=== PATIENT | female | born 1985 | race Caucasian/White ===

== ENCOUNTER 2022-10-07 17:01 | Inpatient (IN) | payer OTHER ==
[~2022-10-07] VITALS: Ht 152.4 cm; Wt 52.6 kg
--- NOTE | 2022-10-07 17:05 | NUR ---
PT BIBA TO BED 8
--- NOTE | 2022-10-07 17:10 | NUR ---
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 PT REPORTS MISSING DIALYSIS TODAY D/T SOB. PER EMS, PT WAS SATTING MID 80 UPON EMS ARRIVAL. PT WAS PLACED ON NRB SATTING 100%. PT NOW PLACED ON ROOM AIR SATTING 97%. PT DENIES COUGH, AFEBRILE. PMH: RENAL FAILURE, DIALYSIS (MWF), HTN
[2022-10-07 17:14] VITALS: BP 153/103
[2022-10-07] MEDS ORDERED: levoFLOXacin 500 MG TAB PO ONE (17:30)
--- NOTE | 2022-10-07 17:52 | NUR ---
lab at bedside
--- NOTE | 2022-10-07 17:52 | NUR ---
pt swabbed for covid(marina) handed to lab
--- NOTE | 2022-10-07 18:13 | NUR ---
xray at bedside
--- NOTE | 2022-10-07 18:14 | NUR ---
MD ZUNIGA AT BEDSIDE FOR EVALUATION
[2022-10-07 18:35] LABS: ALBUMIN 3.4 g/dL (3.4-5.0); ANION GAP 24.6 (8-16); CARBON DIOXIDE 18.9 mmol/L (21-32); POTASSIUM 3.5 mmol/L (3.5-5.1); TOTAL BILIRUBIN 0.7 mg/dL (0.0-1.0)
[2022-10-07 18:50] LABS: CREATININE 14.6 mg/dL (0.6-1.3)
[2022-10-07] MEDS ORDERED: NACL 0.9% 1,000 ML IV ONE (19:10)
--- NOTE | 2022-10-07 19:20 | NUR ---
REPORT GIVEN TO HUBERT MCKEON. TRANSFER OF CARE AT THIS TIME
[2022-10-07 19:21] LABS: WHITE BLOOD COUNT (AUTO) 20.6 K/uL (4.8-10.8)
[2022-10-07 19:22] LABS: HEMOGLOBIN 13.4 g/dL (12.0-16.0); MEAN CORPUSCULAR HEMOGLOBIN 31 pg (27-31); MEAN CORPUSCULAR HGB CONC 34 g/dL (33-37); MEAN CORPUSCULAR VOLUME 91.9 fL (80-94); PLATELET COUNT (AUTO) 43 K/uL (140-450); RED BLOOD CELL COUNT(AUTO) 4.35 MIL/uL (4.20-5.40); RED CELL DISTRIBUTION WIDTH 15.6 % (11.6-13.7)
[2022-10-07 19:23] LABS: LYMPHOCYTES % (MANUAL) 2 % (20-46)
[2022-10-07] MEDS ORDERED: CEFEPIME 1,000 MG in DEXTROSE 5% 50 ML IV ONE (19:25)
[2022-10-07] MEDS ORDERED: VANCOMYCIN 1,000 MG in DEXTROSE 5% 250 ML IV ONE (19:25)
[2022-10-07] MEDS ORDERED: VANCOMYCIN PER PHARMACY MC PRN (19:50)
[2022-10-07] MEDS ORDERED: ONDANSETRON 4 MG/2 ML VIAL IVP PRN (19:50)
[2022-10-07] MEDS ORDERED: HYDROcodone/APAP 5/325 MG 1 TAB TAB PO PRN (19:50)
[2022-10-07] MEDS ORDERED: ZOLPIDEM 5 MG TAB PO PRN (19:50)
[2022-10-07] MEDS ORDERED: CEFEPIME 1,000 MG VIAL ONE (20:11)
[2022-10-07] MEDS: ACETAMINOPHEN 325 MG TAB PO PRN (20:32)
--- NOTE | 2022-10-07 20:32 | NUR ---
PT IS AWAKE WITH HOB ELEVATED. 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 PT DENIES CP . IS SOB SP02 98% 2L NC. PT IS A&OX4 DANISH SPEAKING ONLY. PENDING ADMISSION ORDERS PT IS AWARE OF ADMISSION. PT STATES FEELING ILL FOR 2 DAYS. IS COVID POS. PT HAS BEEN HAVING DIARRHEA THAT STARTED TODAY. FEVER OF 100.8 ORAL. MEDS GIVEN FOR FEVER. PCN HTN ERSD
[2022-10-07] MEDS ORDERED: VANCOMYCIN 1,000 MG VIAL ONE (20:55)
[2022-10-07] MEDS ORDERED: CLON0.1T15 PO (21:21)
[2022-10-07] MEDS ORDERED: OSC500 PO (21:22)
--- NOTE | 2022-10-07 21:22 | NUR ---
MED RECONCILE COMPLETED
--- NOTE | 2022-10-07 23:00 | NUR ---
PT IS SLEEPING WITH HOB ELEVATED. ON WORKERS COMPENSATION COORDINATOR. PT IS A TELE HOLD. PENDING BED ASSIG
--- NOTE | 2022-10-08 03:34 | NUR ---
RESP EVEN AND UNLBORED. SP02 98% 2L NC. HOB ELEVATED. PT DENIES PAIN. PENDING BED ASSIG FOR AM
--- NOTE | 2022-10-08 05:50 | NUR ---
Spoke with Dr. Hay regarding patient having episodes of diarrhea, and clarified orders for heparin received orders to discontinue heparin order due to low platelet count and r/o cdiff. Noted and carried out.
--- NOTE | 2022-10-08 07:14 | NUR ---
C-DIFF STOOL SAMPLE COLLECTED AND SENT TO LAB
[2022-10-08 07:17] LABS: ALBUMIN 2.9 g/dL (3.4-5.0); ANION GAP 25.1 (8-16); CARBON DIOXIDE 16.5 mmol/L (21-32); POTASSIUM 3.6 mmol/L (3.5-5.1); TOTAL BILIRUBIN 0.7 mg/dL (0.0-1.0)
[2022-10-08 07:19] LABS: CREATININE 15.7 mg/dL (0.6-1.3)
[2022-10-08 07:26] LABS: BASOPHILS % (AUTO) 0.2 % (0.0-2.0); HEMATOCRIT 38.6 % (36-48); HEMOGLOBIN 12.9 g/dL (12.0-16.0); LYMPHOCYTES # (AUTO) 0.8 K/uL (2.5-16.5); MEAN CORPUSCULAR HEMOGLOBIN 31 pg (27-31); MEAN CORPUSCULAR HGB CONC 33 g/dL (33-37); MEAN CORPUSCULAR VOLUME 92.8 fL (80-94); MONOCYTES # (AUTO) 0.6 K/uL (0.8-1.0); MONOCYTES % (AUTO) 3.8 % (1.7-9.3); NEUTROPHILS # (AUTO) 14.8 K/uL (1.8-7.7); PLATELET COUNT (AUTO) 42 K/uL (140-450); RED BLOOD CELL COUNT(AUTO) 4.16 MIL/uL (4.20-5.40); WHITE BLOOD COUNT (AUTO) 16.2 K/uL (4.8-10.8)
[2022-10-08] MEDS ORDERED: CALCIUM GLUCONATE 10% 1,000 MG in NACL 0.9% 50 ML IV SCH (07:39)
[2022-10-08] MEDS ORDERED: CALCIUM GLUC 1 GM/50 mL NS BAG 50 ML IV ONE (07:56)
[2022-10-08] MEDS: DOCUSATE SODIUM 100 MG GELCAP PO SCH (09:00)
[2022-10-08] MEDS ORDERED: CEFEPIME 1,000 MG in DEXTROSE 5% 50 ML IV SCH (09:00)
--- NOTE | 2022-10-08 09:05 | NUR ---
PATIENT HAS BEEN SCREENED AND CATEGORIZED MODERATE NUTRITION RISK. PATIENT WILL BE SEEN WITHIN 3-5 DAYS OF ADMISSION. 10/07/22-10/12/22 REVIEWED BY [address] M[address] RD Addendum: 10/10/22 at [address] [facility] REFERRAL HAS BEEN RECEIVED FOR NAUSEA/VOMITING/DIARRHEA X 3 DAYS. PATIENT HAS BEEN RE-SCREENED HIGH RISK AND WILL BE SEEN WITHIN 1-2 DAYS OF RECEIVING THE [facility] REFERRAL. PAOLA SOTELO RD
--- NOTE | 2022-10-08 09:19 | NUR ---
paged Dr Garcia for PT heartrate 120-130. no orders received. comfimed trasfer to telemetry
--- NOTE | 2022-10-08 09:45 | NUR ---
PT ADMITTED IN STABLE CONDITION. ON 2L NC, CHEST RISING AND FALLING EVEN AND UNLABORED. NO ACUTE S/S OF DISTRESS. VSS. ASSESSMENT COMPLETED. MRSA SWAB COLLECTED AND PLACED IN LAB BIN. EDUCATION PROVIDED REGARDING PLAN OF CARE. ON COVID PRECAUTION. PENDING CDIFF. IV PATENT AND INTACT. ALL SAFETY MEASURES IN PLACE. CALL LIGHT WITHIN REACH.
--- NOTE | 2022-10-08 09:50 | NUR ---
Patient will be admitted to care of Dr Garcia. Admited to telemetry. Will go to room 116. Belongings list completed. Report to LESLIE De La Cruz.
[2022-10-08] MEDS: DEXAMETHASONE 4 MG/ML VIAL IVP SCH (09:53)
[2022-10-08 10:31] VITALS: BP 145/65
[2022-10-08 12:00] VITALS: BP 145/65
[2022-10-08] MEDS ORDERED: remdesivir COMMUNICATION ORDER 1 EA MISC MC PRN (12:15)
[2022-10-08] MEDS ORDERED: remdesivir CLINICAL MONITORING 1 EA MISC MC PRN (12:35)
[2022-10-08] MEDS: ASCORBIC ACID 500 MG TAB PO SCH (13:30)
[2022-10-08] MEDS: VITAMIN D 400 IU TAB PO SCH (13:30)
[2022-10-08] MEDS: ZINC SULF 220 MG CAP PO SCH (13:31)
[2022-10-08] MEDS: FAMOTIDINE 20 MG/2 ML VIAL IV SCH (13:34)
[2022-10-08] MEDS ORDERED: REMDESIVIR. 100 MG in NACL 0.9% 100 ML IV SCH (14:00)
--- NOTE | 2022-10-08 15:00 | NUR ---
OBTAINED SIGNED CONSENT FROM PATIENT AND DR FOR HEMODIALYSIS. PROVIDED TO DIALYSIS NURSE WELL.
[2022-10-08 16:00] VITALS: BP 145/65
--- NOTE | 2022-10-08 19:30 | NUR ---
RECEIVED REPORT FROM DAY SHIFT ORIENTATING NURSE JOSE (BEING ORIENTATED BY LESLIE OKEEFE) FOR CONTINUITY OF CARE. PATIENT IS A&O X4. PATIENT IS ON NC 2L, BREATHING IS NORMAL WITH SYMMETRICAL RISE AND FALL OF CHEST. IV IS A 22G LFA, RUNNING NS TKO 5ML. PATIENT IS RECEIVING HD. BED IS IN LOWEST POSITION, WHEELS LOCKED, CALL LIGHT IN PLACE. WILL CONTINUE TO OBSERVE PATIENT.
[2022-10-08 20:00] VITALS: BP 154/109
[2022-10-08] MEDS ORDERED: VANCOMYCIN PER PHARMACY MC PRN (23:10)
[2022-10-09] VITALS: BP 135/102
--- NOTE | 2022-10-09 | NUR ---
PATIENT FINISHED HD AT 2256; 1.8L OUT PER DIALYSIS NURSE ALISSON. DURING DIALYSIS, PATIENT'S ST BECAME SLIGHTLY ELEVATED. NOTIFIED SPINNING LATHE OPERATOR AUTOMATIC PHYSICIAN ESTHER ABOUT DOING A 12 LEAD EKG. AUTHORIZED 12 LEAD. SENT RESULTS TO DR. SANTANA; SAID EKG DIDN'T LOOK TO BAD AND TO CONTINUE MONITORING PATIENT.
[2022-10-09 04:00] VITALS: BP 128/88
--- NOTE | 2022-10-09 05:00 | NUR ---
PATIENT HAD 3 BOWEL MOVEMENTS THROUGH THE NIGHT. BM WAS SLIGHTLY FORMED AND LIQUID, GREEN IN COLOR. WAS INFORMED BY DAY SHIFT NURSE THAT C-DIFF WAS COLLECTED. WILL CONTINUE TO OBSERVE PATIENT.
[2022-10-09 06:53] LABS: BASOPHILS % (AUTO) 0.3 % (0.0-2.0); EOSINOPHILS # (AUTO) 0.1 K/uL (0-0.4); EOSINOPHILS % (AUTO) 0.5 % (0.0-4.0); HEMATOCRIT 41.5 % (36-48); HEMOGLOBIN 13.8 g/dL (12.0-16.0); LYMPHOCYTES # (AUTO) 0.5 K/uL (2.5-16.5); LYMPHOCYTES % (AUTO) 4.4 % (20.5-51.1); MEAN CORPUSCULAR HEMOGLOBIN 30 pg (27-31); MEAN CORPUSCULAR HGB CONC 33 g/dL (33-37); MEAN CORPUSCULAR VOLUME 91.4 fL (80-94); MONOCYTES # (AUTO) 0.7 K/uL (0.8-1.0); MONOCYTES % (AUTO) 5.6 % (1.7-9.3); NEUTROPHILS # (AUTO) 10.9 K/uL (1.8-7.7); NEUTROPHILS % (AUTO) 89.2 % (42.2-75.2); PLATELET COUNT (AUTO) 35 K/uL (140-450); RED BLOOD CELL COUNT(AUTO) 4.54 MIL/uL (4.20-5.40); RED CELL DISTRIBUTION WIDTH 16.2 % (11.6-13.7); WHITE BLOOD COUNT (AUTO) 12.2 K/uL (4.8-10.8)
[2022-10-09 06:58] LABS: PHOSPHORUS 4.1 mg/dL (2.5-4.9)
[2022-10-09 07:05] LABS: ANION GAP 27.6 (8-16); CARBON DIOXIDE 17.1 mmol/L (21-32); POTASSIUM 3.7 mmol/L (3.5-5.1); TOTAL BILIRUBIN 0.7 mg/dL (0.0-1.0)
--- NOTE | 2022-10-09 07:08 | NUR ---
ENDORSED PATIENT TO DAY SHIFT NURSE SARY FOR CONTINUITY OF CARE. PATIENT IS STABLE.
--- NOTE | 2022-10-09 07:30 | NUR ---
RECEIVED REPORT FROM ASSISTED LIVING EXECUTIVE DIRECTOR NURSE. PT CURRENTLY RESTING WITH CHEST RISING AND FALLING. PT RECEIVING 2L NASAL CANNULA OXYGEN. NO ACUTE S/S OF DISTRESS, ALL SAFETY MEASURES IN PLACE. CALL LIGHT WITHIN REACH.
--- NOTE | 2022-10-09 07:30 | NUR ---
RECEIVED REPORT FROM BILL OF MATERIALS CLERK NURSE FOR CONTINUITY OF CARE, PT IS LAYING IN BED ON COVID PRECAUTIONS ON 2L NC STATING SHE IS FINE AND DOES NOT NEED ANYTHING. CALL LIGHT WITHIN REACH. BILL OF MATERIALS CLERK ENDORSED PT BECOMING ST DURING DIALYSIS, NOTIFIED, 12 LEAD EKG WAS ORDERED. SENT RESULTS, AND STATED NO INTERVENTIONS NEEDED TO CONTINUE TO MONITOR. PT CURRENTLY ON TELEMONITOR SHOWING ST AT 113. ALL SAFETY MEASURES IN PLACE.
[2022-10-09 08:00] VITALS: BP 127/87
--- NOTE | 2022-10-09 08:02 | NUR ---
CRITICAL FROM LAB RECEIVED, MD NOTIFIED WELL JR. SYSTEMS ADMINISTRATOR. JR. SYSTEMS ADMINISTRATOR GAVE NO NEW ORDERS. STATED HE WILL PLACE ORDERS.
[2022-10-09] MEDS: CEFEPIME 500 MG in DEXTROSE 5% 50 ML IV SCH (08:29)
[2022-10-09] MEDS: ZINC SULF 220 MG CAP PO SCH (08:30)
[2022-10-09] MEDS: ASCORBIC ACID 500 MG TAB PO SCH (08:30)
[2022-10-09] MEDS: ACETAMINOPHEN 325 MG TAB PO PRN (08:30)
[2022-10-09] MEDS: DOCUSATE SODIUM 100 MG GELCAP PO SCH (08:30)
[2022-10-09] MEDS: VITAMIN D 400 IU TAB PO SCH (08:30)
[2022-10-09] MEDS: DEXAMETHASONE 4 MG/ML VIAL IVP SCH (08:31)
[2022-10-09] MEDS ORDERED: ONDANSETRON 4 MG/2 ML VIAL IVP PRN (09:00)
[2022-10-09] MEDS: LORazepam 2 MG/ML VIAL IVP PRN (09:05)
--- NOTE | 2022-10-09 09:05 | NUR ---
MD NOTIFIED OF PT STATING SHE HAS 8/10 PRESSURE IN CHEST AND FEELS ANXIOUS. MD NOTIFIED REGARDING THIS, WELL VITAL SIGNS. MD ORDERED TORB, GIVEN PER MD ORDER. ALL KARLI MEDICATION ADMINISTERED PER MD ORDER. ALL SAFETY MEASURES IN PLACE, CALL LIGHT WITHIN REACH.
[2022-10-09 12:00] VITALS: BP 126/81
[2022-10-09] MEDS ORDERED: VANCOMYCIN 500 MG VIAL PO SCH (12:00)
[2022-10-09] MEDS: FAMOTIDINE 20 MG/2 ML VIAL IV SCH (13:28)
[2022-10-09] MEDS: VANCOMYCIN HCL 25 MG/ML SOLN PO SCH ×3 (13:29→23:31)
[2022-10-09] MEDS: REMDESIVIR. 100 MG in NACL 0.9% 100 ML IV SCH (13:31)
--- NOTE | 2022-10-09 14:11 | NUR ---
PROVIDED PATIENT CARE AND MEDICATIONS. IV SITE WAS CHANGED TO LEFT FOREARM. PATIENT CONFIRMS NO CHEST PAIN, NO NAUSEA. AND NO DIARRHEA AT THIS TIME.
--- NOTE | 2022-10-09 14:37 | NUR ---
I COMMUNICATED WITH DIALYSIS NURSE AND SHE CONFIRMED THAT PATIENT IS SCHEDULED FOR DIALYSIS TOMORROW 10/30/22. WE MESSAGED DR LOZANO WELL TO NOTIFY REGARDING PATIENTS JUNCTIONAL TACHYCARDIA AND DIALYSIS FOR TOMORROW. PENDING HIS RESPONSE.
[2022-10-09 16:00] VITALS: BP 134/96
--- NOTE | 2022-10-09 16:53 | NUR ---
DC PLANN[age] YRS OLD FEMALE PATIENT WAS ADMITTED FROM HOME WITH A DX OF ESRD COVID . PATIENT HAS A HX OF ESRD ON DIALYSIS ,HTN, HLD. CXR SHOWED CARDIOMEGALY AND BILATERAL UPPER LOBE REFLECTING INFILTRATES. RAPID CVOID TEST POSITIVE. ON O22L/NC SATING 98%. ADMINISTERED REMDESIVIR IV, IV ABX CEFEPIME AND VANCOMYCIN PO FOR C-DIFF POSITIVE . CONSULTED WITH ID, PULMO AND NEPHRO. DC PLAN TO HOME WHEN STABLE CM TO FOLLOW Addendum: 10/11/22 at 1128 by Olivia Vega RN DC PLANNING: [facility] TUNNEL DIALYSIS ACCESS REMOVED FOR BLOOD CULTURES REVEAL GM+COCCI/ [facility] AURE[facility]. WILL PLAN FOR NON TUNNELED HD PLACEMENT TOMORROW. CONTINUED VANCOMYCIN AND CEFEPIME IV ABX AND REMDESIVIR FOR COVID. ID AND NEPHRO FOLLOWING. DC PLAN TO GO HOME WHEN STABLE. CM TO FOLLOW. Addendum: 10/14/22 at 1608 by Olivia Vega RN DC PLANNING: DR CONTRERAS ATTEMPTED TO PERFORM HEMODIALYSIS CATHETER ACCESS UNSUCCESSFUL RECOMMENDED THE IR TO INSERT TUNNEL CATH. SEEN BY CARDIO ORDERED FRANCIS TO R/O ENDOCARDITIS. SEEN BY NEPHRO TO CONTINUE HD. CONTINUED IV ABX ROCEPHIN AND VANCOMYCIN. DC PLAN AWAITING FOR FRANCIS. CM TO FOLLOW Addendum: 10/16/22 at 1524 by Olivia Vega RN DC PLANNING: FRANCIS RESULT SHOWED ENDOCARDITIS ,C-DIFF DR MILLS FOLLOWING ORDERED TO CONTINUE ORAL VANCO CEFTRIAXONE AND DECADRON FOR COVID. CARDIO AND NEPHRO FOLLOWING. CM TO FOLLOW Addendum: 10/17/22 at 1218 by Olivia Vega RN DC PLANNING: CM DISCUSSED WITH DR GEE REGARDING DC PLAN TO LT[facility] PER MD HARDY FOR LTACT CM SPOKE WITH HIEN PADRONA AND KATTY AGREED AND PROVIDE THE TRANSPORT AUTH # [id number] FAXED TO [facility]. CM TO FOLLOW Addendum: 10/21/22 at 1643 by Olivia Vega RN DC PLANNING: CM DISCUSSED THE DC PLAN TO LTAC WITH DR HENRIQUEZ. PER DR HENRIQUEZ SPOKE WITH DR MILLS AND AGREED FOR [facility] FOR IV ROCEPHIN FOR 6 WEEKS. CM CONTACTED [facility] AND STILL AWAITING FOR BED CM CONTACTED PATIENT AND PT AGRE[facility] WITH [facility]. CM TO FOLLOW. Addendum: 10/21/22 at 1704 by Olivia Vega RN DC PLANNING: TON SPOKE WITH [facility] AT [facility], STATED AWAITING FOR BED NUMBER. ARRANGED TRANSPORT WILL CALL WITH [facility] [phone] CM TO FOLLOW Addendum: 10/22/22 at 1406 by Olivia Vega RN DC PLANNING: RECEIVED A CALL FROM [facility] AT [facility] STATED PT GOT ACCEPTED AT [facility] TO ROOM 304B UNDER THE CARE OF DR ESE FERGUSON. # TO GIVE REPORT [phone] ARRANGED TRANSPORT WITH [facility] [employer] WORKER TIME 6PM NOTIFIED BRIGIDA CHARGE NURSE AND ZAID APPLE CM TO FOLLOW
--- NOTE | 2022-10-09 18:27 | NUR ---
PT IS SLEEPING WITH CHEST RISING AND FALLING. PT ON 2L NASAL CANNULA. NO ACUTE S/S OF DISTRESS. ON TRIAGE CLINICIAN SHOWING 114 SINUS TACHYCARDIA.
[2022-10-09 20:00] VITALS: BP 130/80
[2022-10-10] VITALS: BP 128/78
[2022-10-10 04:00] VITALS: BP 125/75
[2022-10-10] MEDS: VANCOMYCIN HCL 25 MG/ML SOLN PO SCH ×4 (05:25→23:54)
[2022-10-10 06:50] LABS: BASOPHILS % (AUTO) 0.2 % (0.0-2.0); HEMOGLOBIN 12.9 g/dL (12.0-16.0); LYMPHOCYTES # (AUTO) 0.5 K/uL (2.5-16.5); MEAN CORPUSCULAR HEMOGLOBIN 31 pg (27-31); MEAN CORPUSCULAR HGB CONC 34 g/dL (33-37); MEAN CORPUSCULAR VOLUME 91.1 fL (80-94); MONOCYTES # (AUTO) 0.8 K/uL (0.8-1.0); MONOCYTES % (AUTO) 7.3 % (1.7-9.3); NEUTROPHILS # (AUTO) 9.2 K/uL (1.8-7.7); NEUTROPHILS % (AUTO) 87.5 % (42.2-75.2); PLATELET COUNT (AUTO) 43 K/uL (140-450); RED BLOOD CELL COUNT(AUTO) 4.17 MIL/uL (4.20-5.40); WHITE BLOOD COUNT (AUTO) 10.5 K/uL (4.8-10.8)
[2022-10-10 07:10] LABS: ALBUMIN 2.8 g/dL (3.4-5.0); ANION GAP 25.9 (8-16); CARBON DIOXIDE 18.3 mmol/L (21-32); POTASSIUM 4.2 mmol/L (3.5-5.1); TOTAL BILIRUBIN 0.5 mg/dL (0.0-1.0)
--- NOTE | 2022-10-10 07:10 | NUR ---
RECEIVED PATIENT FROM PM NURSE FOR CONTINUITY OF CARE. PATIENT SEEN ON BED. COVID ISOLATION PRECAUTION OBSERVED. PATIENT AWAKE ON BED WATCHING TV. PATIENT CARE AND MONITORING RESUMED.
[2022-10-10 07:16] LABS: CREATININE 12.8 mg/dL (0.6-1.3)
[2022-10-10 07:39] LABS: MAGNESIUM 2.2 mg/dL (1.8-2.4); PHOSPHORUS 4.6 mg/dL (2.5-4.9)
[2022-10-10 08:00] VITALS: BP 143/84
--- NOTE | 2022-10-10 08:50 | NUR ---
DIALYSIS FOR PATIENT SCHEDULED. PATIENT PREPARING FOR HEMODIALYSIS.
[2022-10-10] MEDS: DEXAMETHASONE 4 MG/ML VIAL IVP SCH (09:00)
[2022-10-10] MEDS: DOCUSATE SODIUM 100 MG GELCAP PO SCH (09:00)
[2022-10-10] MEDS: ASCORBIC ACID 500 MG TAB PO SCH (09:00)
[2022-10-10] MEDS: VITAMIN D 400 IU TAB PO SCH (09:00)
[2022-10-10] MEDS: ZINC SULF 220 MG CAP PO SCH (09:00)
[2022-10-10] MEDS: CEFEPIME 500 MG in DEXTROSE 5% 50 ML IV SCH (09:00)
[2022-10-10 12:00] VITALS: BP 143/84
--- NOTE | 2022-10-10 12:00 | NUR ---
SIGNS OF INFECTION OBSERVED IN LEFT CHEST TUNNEL CATHETER. ATTENDING SURGEON CONTACTED.
[2022-10-10] MEDS: FAMOTIDINE 20 MG/2 ML VIAL IV SCH (12:36)
[2022-10-10] MEDS ORDERED: VANCOMYCIN 500 MG in DEXTROSE 5% 100 ML IV SCH (13:00)
--- NOTE | 2022-10-10 13:00 | NUR ---
ATTENDING SURGEON SEEN PATIENT. LIST OF SUPPLIES GIVEN TO NURSE FOR PREPARATION.
[2022-10-10] MEDS ORDERED: LIDOCAINE MPF 1% 10 MG/ML VIAL INJ SCH (13:05)
--- NOTE | 2022-10-10 13:40 | NUR ---
PATIENT TUNNEL CATHETER REMOVED. HEMODIALYSIS PLAN FOR NEXT DAY CHANGED FOR PROPPER WOUND HEALING OF SITE.
[2022-10-10] MEDS: REMDESIVIR. 100 MG in NACL 0.9% 100 ML IV SCH (14:00)
--- NOTE | 2022-10-10 14:47 | NUR ---
10/10/22 RD INITIAL ASSESSMENT COMPLETED PLEASE REFER TO NUTRITION ASSESSMENT UNDER CARE ACTIVITY FOR ESTIMATED NUTRITIONAL NEEDS. 1. CONTINUE RENAL DIET TOLERATED 2. RD RECOMMENDS NEPRO 1 A DAY TO MEET 100% OF ESTIMATED NUTRITIONAL NEEDS. -WILL PROVIDE ADDITIONAL 425 CALORIES, 19 GRAMS OF PROTEIN DAILY 3. MONITOR GI SYMPTOMS, PO INTAKE AND NUTRITION-RELATED LAB VALUES 4. RD TO FOLLOW-UP 7 DAYS, LOW RISK PAOLA SOTELO, RD
[2022-10-10 16:00] VITALS: BP 148/95
--- NOTE | 2022-10-10 19:34 | NUR ---
endorsed patient to pm nurse for continuation of care
--- NOTE | 2022-10-10 19:35 | NUR ---
RECEIVED REPORT FROM DAY SHIFT RN FOR CONTINUITY OF CARE. PT IS RESTING IN BED. PT IS AAOX4 PANAMANIAN SPEAKER. PT NOT IN ANY DISTRESS. ON RA SATING 97%. POC DISCUSSED. SAFETY PRECAUTIONS TAKEN. WILL CONTINUE TO MONITOR THE PT.
[2022-10-10 20:00] VITALS: BP 134/73
[2022-10-11] VITALS: BP 118/72
--- NOTE | 2022-10-11 | NUR ---
OBSERVED PT. PT IS SLEEPING COMFORTABLY IN BED. NOT IN ANY DISTRESS. BREATHING EVEN AND UNLABORED. SAFETY PRECAUTIONS TAKEN. WILL CONTINUE TO MONITOR THE PT.
[2022-10-11 04:00] VITALS: BP 101/69
--- NOTE | 2022-10-11 04:15 | NUR ---
CHECKED ON PT. PT NOT IN ANY DISTRESS. PT HAS NO COMPLAINS AT THIS TIME. WILL CONTINUE TO MONITOR THE PT.
[2022-10-11] MEDS: VANCOMYCIN HCL 25 MG/ML SOLN PO SCH ×4 (05:29→23:39)
[2022-10-11 06:12] LABS: PHOSPHORUS 3.1 mg/dL (2.5-4.9)
[2022-10-11 06:13] LABS: BASOPHILS % (AUTO) 0.2 % (0.0-2.0); EOSINOPHILS # (AUTO) 0.1 K/uL (0-0.4); EOSINOPHILS % (AUTO) 0.6 % (0.0-4.0); HEMATOCRIT 39.8 % (36-48); HEMOGLOBIN 13.5 g/dL (12.0-16.0); LYMPHOCYTES # (AUTO) 0.8 K/uL (2.5-16.5); LYMPHOCYTES % (AUTO) 9.7 % (20.5-51.1); MEAN CORPUSCULAR HEMOGLOBIN 31 pg (27-31); MEAN CORPUSCULAR HGB CONC 34 g/dL (33-37); MEAN CORPUSCULAR VOLUME 90.3 fL (80-94); MONOCYTES # (AUTO) 0.6 K/uL (0.8-1.0); MONOCYTES % (AUTO) 7.1 % (1.7-9.3); NEUTROPHILS # (AUTO) 6.9 K/uL (1.8-7.7); NEUTROPHILS % (AUTO) 82.4 % (42.2-75.2); PLATELET COUNT (AUTO) 44 K/uL (140-450); RED BLOOD CELL COUNT(AUTO) 4.41 MIL/uL (4.20-5.40); RED CELL DISTRIBUTION WIDTH 16.5 % (11.6-13.7); WHITE BLOOD COUNT (AUTO) 8.4 K/uL (4.8-10.8)
[2022-10-11 06:15] LABS: ALBUMIN 2.8 g/dL (3.4-5.0); ANION GAP 22.6 (8-16); CARBON DIOXIDE 19.7 mmol/L (21-32); POTASSIUM 3.3 mmol/L (3.5-5.1); TOTAL BILIRUBIN 0.5 mg/dL (0.0-1.0)
[2022-10-11 06:56] LABS: CREATININE 10.3 mg/dL (0.6-1.3)
--- NOTE | 2022-10-11 07:10 | NUR ---
ENDORSED PT TO DAY SHIFT NURSE FOR CONTINUITY OF CARE. PT IS STABLE.
--- NOTE | 2022-10-11 07:20 | NUR ---
RECEIVED PATIENT FROM PM NURSE FOR CONTINUATION OF CARE. PATIENT SEEN AWAKE. COMMUNICATION EXCHANGED.
[2022-10-11 08:00] VITALS: BP 145/96
[2022-10-11] MEDS: DOCUSATE SODIUM 100 MG GELCAP PO SCH (09:52)
[2022-10-11] MEDS: ZINC SULF 220 MG CAP PO SCH (09:52)
[2022-10-11] MEDS: ASCORBIC ACID 500 MG TAB PO SCH (09:52)
[2022-10-11] MEDS: VITAMIN D 400 IU TAB PO SCH (09:53)
[2022-10-11] MEDS: DEXAMETHASONE 4 MG/ML VIAL IVP SCH (09:54)
[2022-10-11] MEDS: CEFEPIME 500 MG in DEXTROSE 5% 50 ML IV SCH (09:55)
[2022-10-11] MEDS ORDERED: VANCOMYCIN 500 MG in DEXTROSE 5% 100 ML IV SCH (11:00)
[2022-10-11 12:00] VITALS: BP 134/99
[2022-10-11] MEDS: FAMOTIDINE 20 MG/2 ML VIAL IV SCH (12:38)
[2022-10-11] MEDS: REMDESIVIR. 100 MG in NACL 0.9% 100 ML IV SCH (14:00)
[2022-10-11 16:00] VITALS: BP 145/95
[2022-10-11] MEDS: cefTRIAXone 2,000 MG in DEXTROSE 5% 100 ML IV SCH (19:02)
--- NOTE | 2022-10-11 19:30 | NUR ---
ENDORSED PATIENT TO PM NURSE FOR CONTINUATION OF CARE
--- NOTE | 2022-10-11 19:31 | NUR ---
RECEIVED REPORT FROM DAY SHIFT RN FOR CONTINUITY OF CARE. PT IS AWAKE. PT NOT IN ANY DISTRESS. PLAN OF CARE DISCUSSED. SAFETY MEASURES TAKEN. WILL CONTINUE TO MONITOR THE PT.
[2022-10-11 20:00] VITALS: BP 122/73
--- NOTE | 2022-10-11 23:40 | NUR ---
SCHEDULE MEDICATION GIVEN. PT WAS REPOSITION. NO OTHER COMPLAINS FROM THE PT. WILL CONTINUE TO MONITOR THE PT.
[2022-10-12] VITALS: BP 125/80
[2022-10-12 04:00] VITALS: BP 125/80
[2022-10-12] MEDS: VANCOMYCIN HCL 25 MG/ML SOLN PO SCH ×4 (05:41→23:35)
[2022-10-12 06:49] LABS: BASOPHILS % (AUTO) 0.2 % (0.0-2.0); EOSINOPHILS % (AUTO) 0.1 % (0.0-4.0); HEMATOCRIT 37.7 % (36-48); HEMOGLOBIN 12.8 g/dL (12.0-16.0); LYMPHOCYTES % (AUTO) 9.5 % (20.5-51.1); MAGNESIUM 2.2 mg/dL (1.8-2.4); MEAN CORPUSCULAR HEMOGLOBIN 31 pg (27-31); MEAN CORPUSCULAR HGB CONC 34 g/dL (33-37); MEAN CORPUSCULAR VOLUME 90.9 fL (80-94); MONOCYTES # (AUTO) 0.6 K/uL (0.8-1.0); MONOCYTES % (AUTO) 5.9 % (1.7-9.3); NEUTROPHILS # (AUTO) 8.9 K/uL (1.8-7.7); NEUTROPHILS % (AUTO) 84.3 % (42.2-75.2); PHOSPHORUS 4.4 mg/dL (2.5-4.9); PLATELET COUNT (AUTO) 50 K/uL (140-450); RED BLOOD CELL COUNT(AUTO) 4.14 MIL/uL (4.20-5.40); RED CELL DISTRIBUTION WIDTH 16.3 % (11.6-13.7); WHITE BLOOD COUNT (AUTO) 10.6 K/uL (4.8-10.8)
[2022-10-12 06:51] LABS: ALBUMIN 2.6 g/dL (3.4-5.0); ANION GAP 26.6 (8-16); CARBON DIOXIDE 15.3 mmol/L (21-32); POTASSIUM 3.9 mmol/L (3.5-5.1); TOTAL BILIRUBIN 0.4 mg/dL (0.0-1.0)
[2022-10-12 07:05] LABS: CREATININE 11.9 mg/dL (0.6-1.3)
--- NOTE | 2022-10-12 07:15 | NUR ---
ENDORSED PT TO DAY SHIFT NURSE FOR CONTINUITY OF CARE. PT IS STABLE.
--- NOTE | 2022-10-12 07:15 | NUR ---
RECEIVED REPORT FROM PRICE CHANGER NURSE FOR CONTINUITY OF CARE. PT STABLE AT THIS TIME.
[2022-10-12 08:00] VITALS: BP 161/104
[2022-10-12] MEDS: DOCUSATE SODIUM 100 MG GELCAP PO SCH (09:00)
[2022-10-12] MEDS: DEXAMETHASONE 4 MG/ML VIAL IVP SCH (09:16)
[2022-10-12] MEDS: hydrALAZINE 20 MG/ML VIAL IVP PRN (09:16)
[2022-10-12] MEDS: VITAMIN D 400 IU TAB PO SCH (09:17)
[2022-10-12] MEDS: ASCORBIC ACID 500 MG TAB PO SCH (09:17)
[2022-10-12] MEDS: ZINC SULF 220 MG CAP PO SCH (09:17)
[2022-10-12] MEDS ORDERED: CALCITONIN INJ 200 IU/ML VIAL IM SCH (11:15)
[2022-10-12 12:00] VITALS: BP 164/78
[2022-10-12] MEDS: FAMOTIDINE 20 MG/2 ML VIAL IV SCH (12:09)
[2022-10-12] MEDS: REMDESIVIR. 100 MG in NACL 0.9% 100 ML IV SCH (13:57)
[2022-10-12 16:00] VITALS: BP 136/79
[2022-10-12] MEDS: cefTRIAXone 2,000 MG in DEXTROSE 5% 100 ML IV SCH (17:24)
--- NOTE | 2022-10-12 19:20 | NUR ---
RECEIVED REPORT FROM THERAPIST RRT NURSE FOR CONTINUITY OF CARE. PT STABLE AT THIS TIME.
[2022-10-12 20:00] VITALS: BP 146/91
[2022-10-13] VITALS: BP 141/75
--- NOTE | 2022-10-13 | NUR ---
VITAL SIGNS TAKEN AND STABLE. PT HAS NO COMPLAINS AT THIS TIME. DENIES ANY PAIN. WILL CONTINUE TO MONITOR THE PT.
[2022-10-13 04:00] VITALS: BP 146/91
[2022-10-13] MEDS: VANCOMYCIN HCL 25 MG/ML SOLN PO SCH ×4 (05:50→23:50)
--- NOTE | 2022-10-13 07:05 | NUR ---
ENDORSED PT TO DAY SHIFT RN FOR CONTINUITY OF CARE. PT IS STABLE.
--- NOTE | 2022-10-13 07:05 | NUR ---
RECEIVED REPORT FROM DIRECTOR OF MEDICAL SERVICES NURSE FOR CONTINUITY OF CARE. PT STABLE AT THIS TIME.
[2022-10-13 07:39] LABS: MAGNESIUM 2.2 mg/dL (1.8-2.4); PHOSPHORUS 4.7 mg/dL (2.5-4.9)
[2022-10-13 08:00] VITALS: BP 139/91
[2022-10-13 08:26] LABS: BASOPHILS % (AUTO) 0.2 % (0.0-2.0); EOSINOPHILS % (AUTO) 0.1 % (0.0-4.0); HEMATOCRIT 38.4 % (36-48); HEMOGLOBIN 13.1 g/dL (12.0-16.0); LYMPHOCYTES # (AUTO) 1.3 K/uL (2.5-16.5); LYMPHOCYTES % (AUTO) 12.1 % (20.5-51.1); MEAN CORPUSCULAR HEMOGLOBIN 31 pg (27-31); MEAN CORPUSCULAR HGB CONC 34 g/dL (33-37); MEAN CORPUSCULAR VOLUME 90.4 fL (80-94); MONOCYTES # (AUTO) 0.6 K/uL (0.8-1.0); MONOCYTES % (AUTO) 5.4 % (1.7-9.3); NEUTROPHILS # (AUTO) 8.8 K/uL (1.8-7.7); NEUTROPHILS % (AUTO) 82.2 % (42.2-75.2); PLATELET COUNT (AUTO) 82 K/uL (140-450); RED BLOOD CELL COUNT(AUTO) 4.24 MIL/uL (4.20-5.40); RED CELL DISTRIBUTION WIDTH 16.6 % (11.6-13.7); WHITE BLOOD COUNT (AUTO) 10.7 K/uL (4.8-10.8)
[2022-10-13] MEDS: DOCUSATE SODIUM 100 MG GELCAP PO SCH (09:00)
[2022-10-13] MEDS: VITAMIN D 400 IU TAB PO SCH (09:02)
[2022-10-13] MEDS: ZINC SULF 220 MG CAP PO SCH (09:03)
[2022-10-13] MEDS: ASCORBIC ACID 500 MG TAB PO SCH (09:03)
[2022-10-13] MEDS: DEXAMETHASONE 4 MG/ML VIAL IVP SCH (09:04)
[2022-10-13 09:18] LABS: ALBUMIN 2.7 g/dL (3.4-5.0); CARBON DIOXIDE 13.5 mmol/L (21-32); TOTAL BILIRUBIN 0.3 mg/dL (0.0-1.0)
[2022-10-13 09:33] LABS: ANION GAP 31.3 (8-16); POTASSIUM 3.8 mmol/L (3.5-5.1)
[2022-10-13 09:57] LABS: CREATININE 13.6 mg/dL (0.6-1.3)
[2022-10-13] MEDS: FAMOTIDINE 20 MG/2 ML VIAL IV SCH (11:35)
[2022-10-13 12:00] VITALS: BP 147/93
[2022-10-13 16:00] VITALS: BP 151/92
[2022-10-13] MEDS: cefTRIAXone 2,000 MG in DEXTROSE 5% 100 ML IV SCH (17:41)
--- NOTE | 2022-10-13 19:22 | NUR ---
ENDORSED PATIENT TO BALLING MACHINE OPERATOR NURSE FOR CONTINUITY OF CARE. PT STABLE AT THIS TIME.
--- NOTE | 2022-10-13 19:25 | NUR ---
RECEIVED PT FROM AM NURSE FOR CONTINUITY OF CARE. PT IS STABLE
[2022-10-13 20:00] VITALS: BP 137/87
[2022-10-14] VITALS: BP 142/89
--- NOTE | 2022-10-14 02:22 | NUR ---
PATIENT ASLEEP, NO S/SX OF DISTRESS NOTED, ALL SAFETY MEASURES IN PLACE, CALL LIGHT WITHIN REACH.
[2022-10-14 04:00] VITALS: BP 136/79
[2022-10-14] MEDS: VANCOMYCIN HCL 25 MG/ML SOLN PO SCH ×3 (05:46→17:26)
[2022-10-14 07:01] LABS: HEMATOCRIT 37.9 % (36-48); HEMOGLOBIN 12.9 g/dL (12.0-16.0); MEAN CORPUSCULAR HEMOGLOBIN 31 pg (27-31); MEAN CORPUSCULAR HGB CONC 34 g/dL (33-37); MEAN CORPUSCULAR VOLUME 89.6 fL (80-94); PLATELET COUNT (AUTO) 120 K/uL (140-450); RED BLOOD CELL COUNT(AUTO) 4.23 MIL/uL (4.20-5.40); RED CELL DISTRIBUTION WIDTH 16.1 % (11.6-13.7)
--- NOTE | 2022-10-14 07:05 | NUR ---
RECEIVED REPORT FROM CERTIFIED NURSE OPERATING ROOM NURSE FOR CONTINUITY OF CARE. PT STABLE AT THIS TIME.
[2022-10-14 07:35] LABS: LYMPHOCYTES % (MANUAL) 16 % (20-46); MONOCYTES % (MANUAL) 9 % (5-12)
[2022-10-14 08:00] VITALS: BP 157/101
[2022-10-14] MEDS: DOCUSATE SODIUM 100 MG GELCAP PO SCH (09:00)
[2022-10-14] MEDS: VITAMIN D 400 IU TAB PO SCH (09:28)
[2022-10-14] MEDS: ZINC SULF 220 MG CAP PO SCH (09:28)
[2022-10-14] MEDS: ASCORBIC ACID 500 MG TAB PO SCH (09:28)
[2022-10-14] MEDS: hydrALAZINE 20 MG/ML VIAL IVP PRN (09:29)
[2022-10-14] MEDS: DEXAMETHASONE 4 MG/ML VIAL IVP SCH (09:29)
[2022-10-14 09:37] LABS: ANION GAP 32.7 (8-16); CARBON DIOXIDE 12.4 mmol/L (21-32); POTASSIUM 4.1 mmol/L (3.5-5.1); TOTAL BILIRUBIN 0.3 mg/dL (0.0-1.0)
[2022-10-14 09:41] LABS: CREATININE 14.9 mg/dL (0.6-1.3)
[2022-10-14 10:00] LABS: MAGNESIUM 2.2 mg/dL (1.8-2.4); PHOSPHORUS 5.4 mg/dL (2.5-4.9)
[2022-10-14] MEDS ORDERED: NACL 0.9% IV SCH (11:30)
[2022-10-14] MEDS ORDERED: CALCIUM GLUCONATE IV SCH (11:30)
[2022-10-14 11:36] LABS: PROTHROMBIN TIME 11.9 secs (10.8-13.4)
[2022-10-14 12:00] VITALS: BP 150/89
[2022-10-14] MEDS: FAMOTIDINE 20 MG/2 ML VIAL IV SCH (12:03)
[2022-10-14 12:17] LABS: PROTHROMBIN TIME 12.3 secs (10.8-13.4)
[2022-10-14] MEDS ORDERED: fentaNYL citrate 0.05 MG/ML VIAL ONE (14:16)
[2022-10-14] MEDS ORDERED: NALOXONE 0.4 MG/ML VIAL ONE (14:16)
[2022-10-14] MEDS ORDERED: FLUMAZENIL 0.5 MG/5 ML VIAL IVP ONE (14:16)
[2022-10-14] MEDS ORDERED: MIDAZOLAM 2 MG/2 ML VIAL ONE (14:16)
[2022-10-14] MEDS ORDERED: LIDOCAINE/EPI MPF 1%1:200000 30 ML VIAL INJ ONE (14:19)
--- NOTE | 2022-10-14 14:20 | NUR ---
PT WAS TAKEN TO RADIOLOGY TO PLACE TUNNEL CATHETER FOR DIALYSIS.
--- NOTE | 2022-10-14 14:55 | NUR ---
PT WAS BROUGHT BACK FROM RADIOLOGY BECAUSE THE RADIOLOGIST IS NOT HERE YET.
[2022-10-14] MEDS ORDERED: LIDOCAINE 1% 500 MG/50 ML VIAL ONE (15:48)
[2022-10-14 16:00] VITALS: BP 149/90
[2022-10-14] MEDS: cefTRIAXone 2,000 MG in DEXTROSE 5% 100 ML IV SCH (17:25)
--- NOTE | 2022-10-14 19:24 | NUR ---
RECEIVED ENDORSEMENT FROM DAY SHIFT NURSE FOR CONTINUITY OF CARE. PT IS ON ISOLATION DUE TO INFECTION OF COVID POSITIVE, C-DIFF AND MRSA IN BLOOD. PT IS AWAKE AND ALERT, ABLE TO VERBALIZED NEEDS. PT WILL HAVE DIALYSIS TONIGHT. PT IS ON RENAL DIET, WILL BE NPO AFTER MIDNIGHT. PT WILL HAVE TRANSESOPHAGEAL ECHOCARDIOGRAPHY PROCEDURE TOMORROW 10/15/22. CURRENTLY, PT'S DIALYSIS SITE IS TEMPORARY ON RIGHT FEMORAL GROIN. RIGHT FOREARM FISTULA IS NOT READY TO BE USED. PT IS COMPLY WITH INSTRUCTIONS.
--- NOTE | 2022-10-14 19:24 | NUR ---
ENDORSED PATIENT TO NURSE SCHOOL NURSE FOR CONTINUITY OF CARE. PT STABLE AT THIS TIME.
--- NOTE | 2022-10-14 22:15 | NUR ---
PT STATED THAT SHE WOULD SIGN CONSENT FOR FRANCIS PROCEDURE TOMORROW, NOT TONIGHT.
--- NOTE | 2022-10-14 23:03 | NUR ---
DIALYSIS STARTS. PT IS IN STABLE CONDITION.
[2022-10-14 23:26] VITALS: BP 151/95
--- NOTE | 2022-10-15 | NUR ---
MEDICATION ANTIBIOTIC VANCOMYCIN HELD DUE TO PT IS HAVING DIALYSIS.
[2022-10-15] MEDS: VANCOMYCIN HCL 25 MG/ML SOLN PO SCH ×5 (02:05→23:02)
--- NOTE | 2022-10-15 02:05 | NUR ---
DIALYSIS COMPLETED, PT ORAL ANTIBIOTIC IS ADMINISTERED. TAKEN 1.5 LITER OF WATER OUT.
[2022-10-15 04:00] VITALS: BP 142/98
--- NOTE | 2022-10-15 04:30 | NUR ---
PT HAD A LARGE BM.
[2022-10-15 06:40] LABS: BASOPHILS % (AUTO) 0.4 % (0.0-2.0); EOSINOPHILS # (AUTO) 0.1 K/uL (0-0.4); EOSINOPHILS % (AUTO) 0.9 % (0.0-4.0); HEMATOCRIT 37.4 % (36-48); HEMOGLOBIN 12.6 g/dL (12.0-16.0); LYMPHOCYTES # (AUTO) 1.8 K/uL (2.5-16.5); LYMPHOCYTES % (AUTO) 15.6 % (20.5-51.1); MEAN CORPUSCULAR HEMOGLOBIN 30 pg (27-31); MEAN CORPUSCULAR HGB CONC 34 g/dL (33-37); MEAN CORPUSCULAR VOLUME 89.5 fL (80-94); MONOCYTES # (AUTO) 0.7 K/uL (0.8-1.0); MONOCYTES % (AUTO) 6.5 % (1.7-9.3); NEUTROPHILS # (AUTO) 8.7 K/uL (1.8-7.7); NEUTROPHILS % (AUTO) 76.6 % (42.2-75.2); PLATELET COUNT (AUTO) 124 K/uL (140-450); RED BLOOD CELL COUNT(AUTO) 4.18 MIL/uL (4.20-5.40); RED CELL DISTRIBUTION WIDTH 16.3 % (11.6-13.7); WHITE BLOOD COUNT (AUTO) 11.4 K/uL (4.8-10.8)
[2022-10-15 06:53] LABS: ALBUMIN 3.1 g/dL (3.4-5.0); CARBON DIOXIDE 21.2 mmol/L (21-32)
[2022-10-15 07:00] LABS: PHOSPHORUS 4.1 mg/dL (2.5-4.9)
[2022-10-15 07:35] LABS: ANION GAP 26.1 (8-16); POTASSIUM 3.3 mmol/L (3.5-5.1); TOTAL BILIRUBIN 0.5 mg/dL (0.0-1.0)
[2022-10-15 07:38] LABS: CREATININE 9.5 mg/dL (0.6-1.3)
[2022-10-15 08:00] VITALS: BP 148/96
[2022-10-15] MEDS ORDERED: MIDAZOLAM 2 MG/2 ML VIAL ONE (08:55)
[2022-10-15] MEDS ORDERED: fentaNYL citrate 0.05 MG/ML VIAL ONE (08:55)
[2022-10-15] MEDS: ZINC SULF 220 MG CAP PO SCH (09:47)
[2022-10-15] MEDS: ASCORBIC ACID 500 MG TAB PO SCH (09:47)
[2022-10-15] MEDS: DOCUSATE SODIUM 100 MG GELCAP PO SCH (09:47)
[2022-10-15] MEDS: VITAMIN D 400 IU TAB PO SCH (09:47)
--- NOTE | 2022-10-15 09:55 | NUR ---
FRANCIS COMPLETED PER PANEL EDGE PAINTER, VEGETATION IS SEEN ON TRICUSPID AND AORTIC VALVES
--- NOTE | 2022-10-15 10:00 | NUR ---
FRANCIS WAS PREFORMED ON PT. BY DR BACA. PT WAS STABLE NO COMPLICATIONS. RN, MEDICAL SOCIOLOGIST AND RT AT BEDSIDE.
[2022-10-15 12:00] VITALS: BP 162/87
[2022-10-15] MEDS: FAMOTIDINE 20 MG/2 ML VIAL IV SCH (12:34)
[2022-10-15] MEDS: hydrALAZINE 20 MG/ML VIAL IVP PRN (12:34)
[2022-10-15 16:00] VITALS: BP 127/75
[2022-10-15] MEDS: cefTRIAXone 2,000 MG in DEXTROSE 5% 100 ML IV SCH (18:21)
--- NOTE | 2022-10-15 18:40 | NUR ---
PERFORMED EKG ON PT ORDERED. ABNORMAL RESULTS REPORTED TO RN. RN WAS PROVIDED WITH A COPY, AND A COPY WAS PLACED IN PT CHART.
--- NOTE | 2022-10-15 18:47 | NUR ---
RECEIVED REPORT FROM EKG, SHOWS AFIB, FLAT EXAMINER KEVEN NOTIFIED NO NEW ORDERS
[2022-10-15 20:00] VITALS: BP 142/81
[2022-10-15] MEDS: LORazepam 2 MG/ML VIAL IVP PRN (20:18)
[2022-10-15 21:31] VITALS: BP 142/98
[2022-10-16] VITALS: BP 138/82
[2022-10-16] MEDS: LORazepam 2 MG/ML VIAL IVP PRN ×2 (02:46→08:48)
[2022-10-16 04:00] VITALS: BP 146/98
[2022-10-16] MEDS: VANCOMYCIN HCL 25 MG/ML SOLN PO SCH ×3 (05:26→17:35)
[2022-10-16 06:38] LABS: BASOPHILS % (AUTO) 0.4 % (0.0-2.0); EOSINOPHILS # (AUTO) 0.1 K/uL (0-0.4); EOSINOPHILS % (AUTO) 0.7 % (0.0-4.0); HEMATOCRIT 33.3 % (36-48); HEMOGLOBIN 11.1 g/dL (12.0-16.0); LYMPHOCYTES # (AUTO) 1.5 K/uL (2.5-16.5); LYMPHOCYTES % (AUTO) 16.1 % (20.5-51.1); MEAN CORPUSCULAR HEMOGLOBIN 31 pg (27-31); MEAN CORPUSCULAR HGB CONC 34 g/dL (33-37); MEAN CORPUSCULAR VOLUME 91.7 fL (80-94); MONOCYTES # (AUTO) 0.8 K/uL (0.8-1.0); MONOCYTES % (AUTO) 8.9 % (1.7-9.3); NEUTROPHILS # (AUTO) 6.7 K/uL (1.8-7.7); NEUTROPHILS % (AUTO) 73.9 % (42.2-75.2); PLATELET COUNT (AUTO) 106 K/uL (140-450); RED BLOOD CELL COUNT(AUTO) 3.63 MIL/uL (4.20-5.40); RED CELL DISTRIBUTION WIDTH 16.6 % (11.6-13.7); WHITE BLOOD COUNT (AUTO) 9.1 K/uL (4.8-10.8)
--- NOTE | 2022-10-16 07:30 | NUR ---
RECEIVED REPORT FROM NETSUITE DEVELOPER NURSE. POC DISCUSSED. PT CURRENTLY RESTING WITH CHEST RISING AND FALLING. NO ACUTE S/S OF DISTRESS. ALL SAFETY MEASURES IN PLACE, CALL LIGHT WITHIN REACH.
[2022-10-16 07:41] LABS: ALBUMIN 2.5 g/dL (3.4-5.0); ANION GAP 16.7 (8-16); CARBON DIOXIDE 24.7 mmol/L (21-32); POTASSIUM 3.4 mmol/L (3.5-5.1); TOTAL BILIRUBIN 0.4 mg/dL (0.0-1.0)
[2022-10-16 07:47] LABS: CREATININE 7.3 mg/dL (0.6-1.3)
[2022-10-16 08:00] VITALS: BP 138/77
[2022-10-16] MEDS: DOCUSATE SODIUM 100 MG GELCAP PO SCH (08:46)
[2022-10-16] MEDS: ZINC SULF 220 MG CAP PO SCH (08:46)
[2022-10-16] MEDS: ASCORBIC ACID 500 MG TAB PO SCH (08:47)
[2022-10-16] MEDS: VITAMIN D 400 IU TAB PO SCH (08:47)
[2022-10-16] MEDS ORDERED: METOPROLOL 25 MG TAB PO SCH (09:00)
--- NOTE | 2022-10-16 09:03 | NUR ---
NOTIFIED MD REGARDING PT POT LEVEL OF 3.4, DR GEE STATED TO CONTACT FOOTWEAR PRODUCTION MACHINE OPERATOR DUE TO PT BEING DIALYSIS PT. NO ORDERS PROVIDED AT THIS TIME
--- NOTE | 2022-10-16 10:00 | NUR ---
CONTACTED DR LOZANO REGARDING POTASSIUM 3.4. HE HAS ADVISED NO COVERAGE IS NEEDED DUE TO PT BEING ON DIALYSIS.
[2022-10-16 12:00] VITALS: BP 160/83
[2022-10-16] MEDS: FAMOTIDINE 20 MG/2 ML VIAL IV SCH (12:27)
--- NOTE | 2022-10-16 13:21 | NUR ---
10/16/22 RD FOLLOW UP COMPLETED PLEASE REFER TO NUTRITION ASSESSMENT UNDER CARE ACTIVITY FOR ESTIMATED NUTRITIONAL NEEDS. 1. CONTINUE RENAL DIET WITH NEPRO 1/DAY TOLERATED -NEPRO WILL PROVIDE ADDITIONAL 425 CALORIES, 19 GRAMS OF PROTEIN DAILY 2. MONITOR GI SYMPTOMS, PO INTAKE AND NUTRITION-RELATED LAB VALUES 3. RD TO FOLLOW-UP 7 DAYS, LOW RISK REVIEWED BY ANTHONY MULLIGAN RD
[2022-10-16] MEDS ORDERED: METOPROLOL 50 MG TAB PO SCH ×2 (15:00→21:00)
[2022-10-16 16:00] VITALS: BP 131/86
[2022-10-16] MEDS: cefTRIAXone 2,000 MG in DEXTROSE 5% 100 ML IV SCH (17:35)
--- NOTE | 2022-10-16 19:30 | NUR ---
RECEIVED PT FROM AM NURSE FOR CONTINUITY OF CARE. PT IS STABLE
[2022-10-16 20:00] VITALS: BP 126/81
[2022-10-17] VITALS: BP 103/65
[2022-10-17] MEDS: VANCOMYCIN HCL 25 MG/ML SOLN PO SCH ×4 (00:05→18:18)
[2022-10-17 04:00] VITALS: BP 130/71
[2022-10-17 06:41] LABS: BASOPHILS # (AUTO) 0.1 K/uL (0.00-0.22); BASOPHILS % (AUTO) 0.6 % (0.0-2.0); EOSINOPHILS # (AUTO) 0.1 K/uL (0-0.4); EOSINOPHILS % (AUTO) 1.5 % (0.0-4.0); HEMATOCRIT 34.5 % (36-48); HEMOGLOBIN 11.4 g/dL (12.0-16.0); LYMPHOCYTES # (AUTO) 1.7 K/uL (2.5-16.5); LYMPHOCYTES % (AUTO) 19.2 % (20.5-51.1); MEAN CORPUSCULAR HEMOGLOBIN 31 pg (27-31); MEAN CORPUSCULAR HGB CONC 33 g/dL (33-37); MEAN CORPUSCULAR VOLUME 93.1 fL (80-94); MONOCYTES # (AUTO) 0.6 K/uL (0.8-1.0); MONOCYTES % (AUTO) 7.1 % (1.7-9.3); NEUTROPHILS # (AUTO) 6.4 K/uL (1.8-7.7); NEUTROPHILS % (AUTO) 71.6 % (42.2-75.2); PLATELET COUNT (AUTO) 95 K/uL (140-450); RED BLOOD CELL COUNT(AUTO) 3.71 MIL/uL (4.20-5.40); RED CELL DISTRIBUTION WIDTH 16.4 % (11.6-13.7)
[2022-10-17 07:02] LABS: ALBUMIN 2.4 g/dL (3.4-5.0); ANION GAP 18.7 (8-16); CARBON DIOXIDE 22.6 mmol/L (21-32); POTASSIUM 3.3 mmol/L (3.5-5.1); TOTAL BILIRUBIN 0.4 mg/dL (0.0-1.0)
[2022-10-17 07:14] LABS: CREATININE 9.4 mg/dL (0.6-1.3)
[2022-10-17 08:00] VITALS: BP 121/69
--- NOTE | 2022-10-17 08:00 | NUR ---
received patient resting comfortably in bed, not in any form of distress,shift assessment done and documented, plan of care discussed, contact isolation maintained,will continue to monitor.
[2022-10-17] MEDS: DOCUSATE SODIUM 100 MG GELCAP PO SCH (09:00)
[2022-10-17] MEDS: ZINC SULF 220 MG CAP PO SCH (09:00)
[2022-10-17] MEDS: VITAMIN D 400 IU TAB PO SCH (09:00)
[2022-10-17] MEDS: ASCORBIC ACID 500 MG TAB PO SCH (09:00)
--- NOTE | 2022-10-17 09:00 | NUR ---
Dr. Campoverde seen and examined the patient. Aware of patient abnormal lab results no orders at this time.
--- NOTE | 2022-10-17 10:30 | NUR ---
HD dialysis started. patient tolerating well.
[2022-10-17 12:00] VITALS: BP 128/54
[2022-10-17] MEDS ORDERED: METOPROLOL 50 MG TAB PO SCH (12:15)
--- NOTE | 2022-10-17 12:20 | NUR ---
PT CURRENTLY IN ISO, THEREFORE SW OUTREACHED TO PTS HOWEVER, NO ANSWER. SW UNABLE TO LEAVE MESSAGE VM HAS NOT BEEN SET UP.
--- NOTE | 2022-10-17 14:00 | NUR ---
HD completed. 500cc output. patient stable at this time.
[2022-10-17] MEDS: FAMOTIDINE 20 MG/2 ML VIAL IV SCH (15:41)
[2022-10-17 16:00] VITALS: BP 137/84
[2022-10-17] MEDS: cefTRIAXone 2,000 MG in DEXTROSE 5% 100 ML IV SCH (18:18)
--- NOTE | 2022-10-17 19:30 | NUR ---
RECEIVED PT FROM AM NURSE FOR CONTINUITY OF CARE. PT IS STABLE
[2022-10-17 20:00] VITALS: BP 120/71
[2022-10-17] MEDS: METOPROLOL 50 MG TAB PO SCH (21:19)
[2022-10-18] VITALS: BP 105/62
[2022-10-18 04:00] VITALS: BP 100/61
[2022-10-18] MEDS: VANCOMYCIN HCL 25 MG/ML SOLN PO SCH ×5 (05:41→23:56)
[2022-10-18 06:52] LABS: BASOPHILS # (AUTO) 0.1 K/uL (0.00-0.22); BASOPHILS % (AUTO) 0.6 % (0.0-2.0); EOSINOPHILS # (AUTO) 0.1 K/uL (0-0.4); EOSINOPHILS % (AUTO) 1.1 % (0.0-4.0); HEMATOCRIT 34.7 % (36-48); HEMOGLOBIN 11.2 g/dL (12.0-16.0); LYMPHOCYTES # (AUTO) 2.4 K/uL (2.5-16.5); LYMPHOCYTES % (AUTO) 21.6 % (20.5-51.1); MEAN CORPUSCULAR HEMOGLOBIN 30 pg (27-31); MEAN CORPUSCULAR HGB CONC 32 g/dL (33-37); MEAN CORPUSCULAR VOLUME 93.9 fL (80-94); MONOCYTES # (AUTO) 0.7 K/uL (0.8-1.0); MONOCYTES % (AUTO) 6.6 % (1.7-9.3); NEUTROPHILS # (AUTO) 7.7 K/uL (1.8-7.7); NEUTROPHILS % (AUTO) 70.1 % (42.2-75.2); PLATELET COUNT (AUTO) 102 K/uL (140-450); RED BLOOD CELL COUNT(AUTO) 3.69 MIL/uL (4.20-5.40); RED CELL DISTRIBUTION WIDTH 15.7 % (11.6-13.7)
[2022-10-18 07:06] LABS: ALBUMIN 2.7 g/dL (3.4-5.0); ANION GAP 12.7 (8-16); CARBON DIOXIDE 30.9 mmol/L (21-32); POTASSIUM 3.6 mmol/L (3.5-5.1); TOTAL BILIRUBIN 0.5 mg/dL (0.0-1.0)
[2022-10-18 07:15] LABS: CREATININE 6.5 mg/dL (0.6-1.3)
--- NOTE | 2022-10-18 07:30 | NUR ---
RECEIVED REPORT FROM ROUTE DELIVERY MANAGER NURSE. POC DISCUSSED. PT CURRENTLY RESTING WITH CHEST RISING AND FALLING.
[2022-10-18] MEDS: VITAMIN D 400 IU TAB PO SCH (08:59)
[2022-10-18] MEDS: ZINC SULF 220 MG CAP PO SCH (08:59)
[2022-10-18] MEDS: METOPROLOL 50 MG TAB PO SCH ×2 (08:59→20:38)
[2022-10-18] MEDS: DOCUSATE SODIUM 100 MG GELCAP PO SCH (09:00)
[2022-10-18] MEDS: ASCORBIC ACID 500 MG TAB PO SCH (09:00)
[2022-10-18 12:30] VITALS: BP 126/62
[2022-10-18] MEDS: FAMOTIDINE 20 MG/2 ML VIAL IV SCH (12:51)
[2022-10-18 16:00] VITALS: BP 118/63
[2022-10-18] MEDS: cefTRIAXone 2,000 MG in DEXTROSE 5% 100 ML IV SCH (18:04)
--- NOTE | 2022-10-18 19:30 | NUR ---
RECEIVED REPORT FROM DAY SHIFT RN FOR CONTINUITY OF CARE. PT IS AWAKE AND ALERT SITTING BY BEDSIDE. PT IS ON RA SATING 98%. PT NOT IN DISTRESS. POC DISCUSSED. CALL LIGHT WITHIN REACH. WILL CONTINUE TO MONITOR THE PT.
[2022-10-18 20:00] VITALS: BP 112/64
[2022-10-19] VITALS: BP 107/61
--- NOTE | 2022-10-19 | NUR ---
SCHEDULE FIRVANQ GIVEN. VITAL SIGNS TAKEN AND STABLE. WILL CONTINUE TO MONITOR THE PT.
[2022-10-19 04:00] VITALS: BP 115/68
--- NOTE | 2022-10-19 04:30 | NUR ---
OBSERVED PT. PT IS SLEEPING COMFORTABLY. NOT IN ANY DISTRESS. BREATHING EVEN AND UNLABORED. CALL LIGHT WITHIN REACH. WILL CONTINUE TO MONITOR THE PT.
[2022-10-19] MEDS: VANCOMYCIN HCL 25 MG/ML SOLN PO SCH ×4 (05:32→23:59)
--- NOTE | 2022-10-19 07:15 | NUR ---
ENDORSED PT TO DAY SHIFT RN FOR CONTINUITY OF CARE. PT IS STABLE.
--- NOTE | 2022-10-19 07:49 | NUR ---
RECEIVED PT CARE AND REPORT FROM PASCUAL NELSON. TOOK BREAKFAST TRAY INTO PATIENT'S ROOM. PT IS RESTING IN BED SEMI FOWLERS ON RIGHT SIDE. A&OX4, APPEARS CALM. NO VISIBLE S/S OF DISTRESS OR DISCOMFORT. DENIES PAIN OR SOB. SAT PT UP FOR BREAKFAST. CALL LIGHT IS WITHIN REACH, ALL NEEDS MET AT THIS TIME. DROPLET PRECAUTIONS MAINTAINED.
[2022-10-19 08:00] VITALS: BP 127/61
[2022-10-19 08:35] LABS: ALBUMIN 2.3 g/dL (3.4-5.0); ANION GAP 14.7 (8-16); CARBON DIOXIDE 26.1 mmol/L (21-32); POTASSIUM 3.8 mmol/L (3.5-5.1); TOTAL BILIRUBIN 0.4 mg/dL (0.0-1.0)
[2022-10-19 08:42] LABS: BASOPHILS # (AUTO) 0.1 K/uL (0.00-0.22); BASOPHILS % (AUTO) 1.2 % (0.0-2.0); EOSINOPHILS # (AUTO) 0.2 K/uL (0-0.4); EOSINOPHILS % (AUTO) 1.5 % (0.0-4.0); HEMATOCRIT 31.1 % (36-48); HEMOGLOBIN 10.2 g/dL (12.0-16.0); LYMPHOCYTES # (AUTO) 1.8 K/uL (2.5-16.5); LYMPHOCYTES % (AUTO) 16.9 % (20.5-51.1); MEAN CORPUSCULAR HEMOGLOBIN 31 pg (27-31); MEAN CORPUSCULAR HGB CONC 33 g/dL (33-37); MEAN CORPUSCULAR VOLUME 93.6 fL (80-94); MONOCYTES # (AUTO) 0.8 K/uL (0.8-1.0); MONOCYTES % (AUTO) 7.4 % (1.7-9.3); NEUTROPHILS # (AUTO) 7.7 K/uL (1.8-7.7); PLATELET COUNT (AUTO) 98 K/uL (140-450); RED BLOOD CELL COUNT(AUTO) 3.33 MIL/uL (4.20-5.40); RED CELL DISTRIBUTION WIDTH 15.8 % (11.6-13.7); WHITE BLOOD COUNT (AUTO) 10.5 K/uL (4.8-10.8)
[2022-10-19 08:51] LABS: CREATININE 8.3 mg/dL (0.6-1.3)
[2022-10-19] MEDS: METOPROLOL 50 MG TAB PO SCH ×2 (09:00→20:51)
[2022-10-19] MEDS: ZINC SULF 220 MG CAP PO SCH (09:22)
[2022-10-19] MEDS: DOCUSATE SODIUM 100 MG GELCAP PO SCH (09:22)
[2022-10-19] MEDS: ASCORBIC ACID 500 MG TAB PO SCH (09:22)
[2022-10-19] MEDS: VITAMIN D 400 IU TAB PO SCH (09:23)
--- NOTE | 2022-10-19 09:24 | NUR ---
0900 ANABEL HELD D/T DIALYSIS NURSE PRESENT AND STATING THAT SHE WILL BEGIN DIALYSIS SHORTLY.
--- NOTE | 2022-10-19 10:14 | NUR ---
TEXTED DR. LOZANO TO INFOR ABOUT PATIENTS LOW CALCIUM LEVEL OF 3.9 THIS MORNING AND TO REPORT ON PREVIOUS LEVELS OF <6.0 SINCE OCTOBER 07. AWAITING ORDERS.
--- NOTE | 2022-10-19 10:20 | NUR ---
TEXTED DR. GEE TO INFORM ABOUT PATIENTS LOW CALCIUM LEVEL OF 3.9 THIS MORNING AND TO REPORT ON PREVIOUS LEVELS OF <6.0 SINCE OCTOBER 07. AWAITING ORDERS.
[2022-10-19] MEDS ORDERED: CALCIUM GLUC 1 GM/50 mL NS BAG 50 ML IV SCH ×2 (10:30→11:04)
--- NOTE | 2022-10-19 10:30 | NUR ---
DR. LOZANO ORDERED CALCIUM GLUCONATE 2G IV FOR CALCIUM LEVEL OF 3.9.
--- NOTE | 2022-10-19 10:59 | NUR ---
CALCIUM GLUCONATE 2G SCANNED AND GIVEN TO ESE DIALYSIS NURSE TO BE GIVEN WITH DIALYSIS.
[2022-10-19 12:00] VITALS: BP 135/56
[2022-10-19] MEDS: FAMOTIDINE 20 MG/2 ML VIAL IV SCH (12:39)
--- NOTE | 2022-10-19 12:40 | NUR ---
HEPARIN 10,000U SCANNED AND GIVEN TO ESE DIALYSIS NURSE FOR HD HEPARIN ADMINISTRATION. 1 VIAL 5,000U TO EACH PORT. X2 PORTS.
--- NOTE | 2022-10-19 13:45 | NUR ---
2L OUT WITH HD.
[2022-10-19 16:00] VITALS: BP 120/61
[2022-10-19] MEDS ORDERED: CALCIUM GLUCONATE IV ONE (17:00)
[2022-10-19] MEDS ORDERED: NACL 0.9% IV ONE (17:00)
--- NOTE | 2022-10-19 17:10 | NUR ---
SAW ORDER FOR CALCIUM GLUCONATE 3,000MG PLACED BY DR. LOZANO. CONTACTED DR. LOZANO AND ASKED IF HE WANTED TO GIVE CALCIUM GLUCONATE 3,000MG IN ADDITION TO THE CALCIUM GLUCONATE 2,000MG AND 3.0 CALCIUM RECEIVED DURING DIALYSIS EARLIER TODAY. DR. LOZANO ASKED TO CHANGE CALCIUM GLUCONATE 3,000MG ORDER TO 1,000MG INSTEAD.
--- NOTE | 2022-10-19 18:46 | NUR ---
PT IS RESTING IN BED SEMI FOWLERS, ON THE PHONE, A&OX4, APPEARS CALM. NO VISIBLE S/S OF DISTRESS OR DISCOMFORT. DENIES ANY PAIN OR SOB. PREPARING TO EAT DINNER. CALL LIGHT IS WITHIN REACH, ALL NEEDS HAVE BEEN MET AT THIS TIME. WILL ENDORSE TO NOC SHIFT NURSE. DROPLET AND CONTACT PRECAUTIONS MAINTAINED THROUGHOUT SHIFT.
--- NOTE | 2022-10-19 19:30 | NUR ---
RECEIVED REPORT FROM DAY SHIFT RN FOR CONTINUITY OF CARE. PT IS AWAKE. RESTING IN BED. NOT IN ANY DISTRESS. PT IS ON RA SATING 93%. PT HAS LEFT FOREARM 22 GAUGE TKO. PT NOT IN ANY DISTRESS. HAS NO COMPLAINS. POC DISCUSSED. WILL CONTINUE TO MONITOR THE PT.
[2022-10-19 20:00] VITALS: BP 114/61
[2022-10-19] MEDS ORDERED: CALCIUM GLUC 1 GM/50 mL NS BAG 50 ML IV ONE (21:00)
[2022-10-20] VITALS: BP 100/47
--- NOTE | 2022-10-20 | NUR ---
SCHEDULE MEDICATION GIVEN. NO ADVERSE EFFECT NOTED. NO COMPLAINS FROM THE PT. WILL CONTINUE TO MONITOR THE PT.
[2022-10-20 04:00] VITALS: BP 118/57
--- NOTE | 2022-10-20 04:00 | NUR ---
OBSERVED PT. PT IS RESTING IN BED. PT IS AWAKEN AND WITH NO COMPLAINS. PT NOT IN ANY DISTRESS. SAFETY MEASURES TAKEN. WILL CONTINUE TO MONITOR THE PT.
[2022-10-20] MEDS: VANCOMYCIN HCL 25 MG/ML SOLN PO SCH ×3 (05:41→17:55)
[2022-10-20 06:16] LABS: BASOPHILS # (AUTO) 0.1 K/uL (0.00-0.22); BASOPHILS % (AUTO) 1.2 % (0.0-2.0); EOSINOPHILS # (AUTO) 0.1 K/uL (0-0.4); EOSINOPHILS % (AUTO) 0.9 % (0.0-4.0); HEMATOCRIT 30.7 % (36-48); HEMOGLOBIN 10.1 g/dL (12.0-16.0); LYMPHOCYTES # (AUTO) 1.6 K/uL (2.5-16.5); LYMPHOCYTES % (AUTO) 17.2 % (20.5-51.1); MEAN CORPUSCULAR HEMOGLOBIN 31 pg (27-31); MEAN CORPUSCULAR HGB CONC 33 g/dL (33-37); MEAN CORPUSCULAR VOLUME 93.1 fL (80-94); MONOCYTES # (AUTO) 0.6 K/uL (0.8-1.0); MONOCYTES % (AUTO) 6.4 % (1.7-9.3); NEUTROPHILS # (AUTO) 6.8 K/uL (1.8-7.7); NEUTROPHILS % (AUTO) 74.3 % (42.2-75.2); PLATELET COUNT (AUTO) 116 K/uL (140-450); RED CELL DISTRIBUTION WIDTH 16.4 % (11.6-13.7); WHITE BLOOD COUNT (AUTO) 9.2 K/uL (4.8-10.8)
[2022-10-20 06:41] LABS: ALBUMIN 2.4 g/dL (3.4-5.0); ANION GAP 12.8 (8-16); CARBON DIOXIDE 28.1 mmol/L (21-32); POTASSIUM 3.9 mmol/L (3.5-5.1); TOTAL BILIRUBIN 0.6 mg/dL (0.0-1.0)
[2022-10-20 06:51] LABS: CREATININE 6.5 mg/dL (0.6-1.3)
--- NOTE | 2022-10-20 07:16 | NUR ---
ENDORSED PT TO DAY SHIFT RN FOR CONTINUITY OF CARE. PT IS STABLE.
[2022-10-20 08:00] VITALS: BP 120/64
[2022-10-20] MEDS: ZINC SULF 220 MG CAP PO SCH (09:24)
[2022-10-20] MEDS: ASCORBIC ACID 500 MG TAB PO SCH (09:25)
[2022-10-20] MEDS: DOCUSATE SODIUM 100 MG GELCAP PO SCH (09:25)
[2022-10-20] MEDS: METOPROLOL 50 MG TAB PO SCH ×2 (09:26→20:24)
[2022-10-20] MEDS: VITAMIN D 400 IU TAB PO SCH (09:26)
[2022-10-20 12:00] VITALS: BP 132/61
[2022-10-20] MEDS: FAMOTIDINE 20 MG/2 ML VIAL IV SCH (12:40)
[2022-10-20 16:00] VITALS: BP 118/69
--- NOTE | 2022-10-20 18:36 | NUR ---
NURSE RECEIVED ENDORSE FROM PM SHIFT NURSE THAT PATIENT'S ROCEPHIN 2GM EXPIRING AND NEED DR. MILLS'S ADVISE FOR RENEW. NURSE CHECKED THE ORDER AND FIND THAT DR. MILLS ORDERED ROCEPHIN FOR "DOCUMENT GRAM POS. CULTURE," AND ORDER ALREADY @0601. PATIENT CURRENT ON VANCOMYCIN PO FOR C.DIFF. PATIENT WAS FOUND BLOOD STAPHYLOCOCCUS AUREUS POSITIVE DURING THIS HOSPITALIZATION BESIDES COVID POSITIVE. NURSE INFORMED DR. GEE THE CONDITION. WILL CONDITION TO MONITOR.
--- NOTE | 2022-10-20 19:30 | NUR ---
RECEIVED REPORT FROM DAY SHIFT NURSE JULIUS FOR CONTINUITY OF CARE. PATIENT IS A&O X4, KAZAKH SPEAKING. PATIENT IS ON ROOM AIR, BREATHING IS NORMAL WITH SYMMETRICAL RISE AND FALL OF CHEST. IV IS A 22G LFA, NO FLUIDS RUNNING AT THIS TIME. PATIENT IS AWAKE LYING ON HER SIDE, SEMI-FOWLERS IN BED. BED IS IN LOWEST POSITION, WHEELS LOCKED, CALL LIGHT IN PLACE. WILL CONTINUE TO OBSERVE PATIENT.
--- NOTE | 2022-10-20 19:37 | NUR ---
ENDORSE PATIENT IN STABLE CONDITION TO PM SHIFT NURSE THAT PATIENT'S ROCEPHIN FALL OFF YESTERDAY MORNING AND PO VANCOMYCIN STILL CONTINUE WITH IV SALINE LOCK
[2022-10-20 20:00] VITALS: BP 149/60
--- NOTE | 2022-10-20 22:49 | NUR ---
READ DAY SHIFT NURSE JULIUS'S NOTE ABOUT ROCEPHIN EXPIRING. MESSAGED MD MILLS ABOUT RENEWAL FOR ROCEPHIN 2G IVPB Q24H THAT ON 10/18. PENDING RESPONSE FOR RENEWAL OF MEDICATION.
[2022-10-21] VITALS: BP 108/56
[2022-10-21] MEDS: VANCOMYCIN HCL 25 MG/ML SOLN PO SCH ×4 (00:37→17:57)
--- NOTE | 2022-10-21 01:30 | NUR ---
PATIENT HAS BEEN SLEEPING DURING THE NIGHT. PATIENT HAD A BM IN COMMODE; COMMODE WAS CLEANED AND NEW LINER WAS PLACED INSIDE. ASKED PATIENT ABOUT HER DIALYSIS; PATIENT STATES THAT SHE HAS DIALYSIS ON , , AND SATURDAYS. PATIENT HAD HD YESTERDAY (FRIDAY THE ); 2 LITERS WERE REMOVED PER DAY SHIFT NURSE. WILL CONTINUE TO OBSERVE PATIENT.
[2022-10-21 04:00] VITALS: BP 117/67
--- NOTE | 2022-10-21 05:00 | NUR ---
PATIENT HAS SLEPT OFF AND ON THROUGHOUT THE NIGHT. PATIENT'S BREATHING IS NORMAL WITH SYMMETRICAL RISE AND FALL OF CHEST. WILL CONTINUE TO OBSERVE PATIENT.
--- NOTE | 2022-10-21 07:30 | NUR ---
RECEIVED REPORT FROM DIRECTOR CREDIT RISK NURSE. POC DISCUSSED. PT CURRENTLY RESTING WITH CHEST RISING AND FALLING.
--- NOTE | 2022-10-21 07:40 | NUR ---
ENDORSED TO DAY SHIFT NURSE JULIUS AND ORIENTING NURSE JOSE FOR CONTINUITY OF CARE. PATIENT IS STABLE.
[2022-10-21 08:00] VITALS: BP 127/74
[2022-10-21] MEDS: VITAMIN D 400 IU TAB PO SCH (08:36)
[2022-10-21] MEDS: ASCORBIC ACID 500 MG TAB PO SCH (08:36)
[2022-10-21] MEDS: DOCUSATE SODIUM 100 MG GELCAP PO SCH (08:37)
[2022-10-21] MEDS: METOPROLOL 50 MG TAB PO SCH ×2 (08:37→20:27)
[2022-10-21] MEDS: ZINC SULF 220 MG CAP PO SCH (08:37)
--- NOTE | 2022-10-21 10:00 | NUR ---
DIALYSIS NURSE AT BEDSIDE WITH PATIENT PROVIDING DIALYSIS.
[2022-10-21] MEDS: cefTRIAXone 2,000 MG in DEXTROSE 5% 100 ML IV SCH (10:14)
[2022-10-21 12:00] VITALS: BP 133/64
[2022-10-21] MEDS: FAMOTIDINE 20 MG/2 ML VIAL IV SCH (12:31)
--- NOTE | 2022-10-21 13:30 | NUR ---
DIALYSIS NURSE COMPLETED DIALYSIS. REMOVED 2L. PT IN STABLE CONDITION, RESTING WITH CHEST RISING AND FALLING.
[2022-10-21 16:00] VITALS: BP 142/73
--- NOTE | 2022-10-21 18:50 | NUR ---
PT IS RESTING WITH CHEST RISING AND FALLING. NO ACUTE S/S OF DISTRESS. ON TELE MONITOR SHOWING [address] ST[address]
--- NOTE | 2022-10-21 19:30 | NUR ---
RECEIVED REPORT FROM DAY SHIFT NURSE JULIUS FOR CONTINUITY OF CARE. PATIENT IS A&O X4, [place] SPEAKING. PATIENT IS ON ROOM AIR, BREATHING IS NORMAL WITH SYMMETRICAL RISE AND FALL OF CHEST. IV IS A 22G LFA, NO FLUIDS RUNNING AT THIS TIME. PATIENT IS AWAKE LYING ON HER SIDE, SEMI-FOWLERS IN BED VISITING WITH . BED IS IN LOWEST POSITION, WHEELS LOCKED, CALL LIGHT IN PLACE. WILL CONTINUE TO OBSERVE PATIENT.
[2022-10-21 20:00] VITALS: BP 106/68
[2022-10-22] VITALS: BP 104/58
[2022-10-22] MEDS: VANCOMYCIN HCL 25 MG/ML SOLN PO SCH ×4 (00:09→18:56)
--- NOTE | 2022-10-22 01:00 | NUR ---
PATIENT HAS SLEPT THROUGHOUT THE NIGHT. PATIENT TOOK BOTH 2100 MEDICATION AND 0000 MEDICATION WITHOUT ANY DIFFICULTY WITH SWALLOWING. BREATHING IS NORMAL WITH SYMMETRICAL RISE AND FALL OF CHEST. WILL CONTINUE TO OBSERVE PATIENT.
[2022-10-22 04:00] VITALS: BP 100/49
--- NOTE | 2022-10-22 05:00 | NUR ---
PATIENT HAS SLEPT OFF AND ON THROUGHOUT THE NIGHT. PATIENT USED COMMODE TWICE DURING THE NIGHT.
--- NOTE | 2022-10-22 07:45 | NUR ---
ENDORSED TO DAY SHIFT NURSE ZAID FOR CONTINUITY OF CARE. PATIENT IS STABLE.
--- NOTE | 2022-10-22 07:46 | NUR ---
RECEIVED BEDSIDE REPORT FROM NIGHTSHIFT NURSE. PT IS ASLEEP IN BED, WOKE TO NAME AND TOUCH. PT REPORTS NO PAIN/DISCOMFORT AT THIS TIME. REORIENTED PT TO CALL LIGHT. WILL CONTINUE WITH PT CARE.
[2022-10-22 08:00] VITALS: BP 120/68
[2022-10-22] MEDS: ASCORBIC ACID 500 MG TAB PO SCH (09:59)
[2022-10-22] MEDS: VITAMIN D 400 IU TAB PO SCH (09:59)
[2022-10-22] MEDS: METOPROLOL 50 MG TAB PO SCH ×2 (10:00→21:00)
[2022-10-22] MEDS: ZINC SULF 220 MG CAP PO SCH (10:00)
[2022-10-22] MEDS: DOCUSATE SODIUM 100 MG GELCAP PO SCH (10:00)
[2022-10-22] MEDS: cefTRIAXone 2,000 MG in DEXTROSE 5% 100 ML IV SCH (10:01)
[2022-10-22 12:00] VITALS: BP 119/62
[2022-10-22] MEDS: FAMOTIDINE 20 MG/2 ML VIAL IV SCH (12:15)
[2022-10-22 12:56] LABS: BASOPHILS # (AUTO) 0.1 K/uL (0.00-0.22); BASOPHILS % (AUTO) 1.4 % (0.0-2.0); EOSINOPHILS # (AUTO) 0.1 K/uL (0-0.4); EOSINOPHILS % (AUTO) 0.6 % (0.0-4.0); HEMOGLOBIN 9.9 g/dL (12.0-16.0); LYMPHOCYTES # (AUTO) 1.7 K/uL (2.5-16.5); LYMPHOCYTES % (AUTO) 16.3 % (20.5-51.1); MEAN CORPUSCULAR HEMOGLOBIN 31 pg (27-31); MEAN CORPUSCULAR HGB CONC 33 g/dL (33-37); MEAN CORPUSCULAR VOLUME 94.2 fL (80-94); MONOCYTES # (AUTO) 0.8 K/uL (0.8-1.0); MONOCYTES % (AUTO) 7.6 % (1.7-9.3); NEUTROPHILS # (AUTO) 7.7 K/uL (1.8-7.7); NEUTROPHILS % (AUTO) 74.1 % (42.2-75.2); PLATELET COUNT (AUTO) 140 K/uL (140-450); RED BLOOD CELL COUNT(AUTO) 3.19 MIL/uL (4.20-5.40); RED CELL DISTRIBUTION WIDTH 16.4 % (11.6-13.7); WHITE BLOOD COUNT (AUTO) 10.4 K/uL (4.8-10.8)
[2022-10-22 13:29] LABS: ALBUMIN 2.6 g/dL (3.4-5.0); ANION GAP 14.3 (8-16); POTASSIUM 4.3 mmol/L (3.5-5.1); TOTAL BILIRUBIN 0.4 mg/dL (0.0-1.0)
[2022-10-22 16:00] VITALS: BP 120/65
[2022-10-22 16:57] VITALS: BP 119/62
--- NOTE | 2022-10-22 18:00 | NUR ---
INFORMED PT OF DISCHARGE, ORGANIZED DISCHARGE PAPERWORK. REPORT GIVEN TO LAURENCE. IV KEPT IN PLACE PER FACILITY'S REQUEST. CASE MANAGEMENT STATES TRANSPORT IS SCHEDULED FOR 1829.
--- NOTE | 2022-10-22 19:00 | NUR ---
ENDORSED PT TO NIGHTSHIFT NURSE FOR CONTINUITY OF CARE. PT IS RESTING IN BED, NO SIGNS OF DISTRESS. VITAL SIGNS STABLE. WAITING FOR TRANSPORT, WAS INFORMED BY CASE MANAGEMENT THAT TRANSPORT WAS SCHEDULED FOR 1800. NO FURTHER NEEDS ARE TO BE MET AT THIS TIME.
--- NOTE | 2022-10-22 21:30 | NUR ---
PT WAS PICKED UP BY [facility] GOING TO [facility].PT IS DISCHARGED IN STABLE CONDITION.
== END 2022-10-22 21:30 | disposition short-term general hospital (02) | DRG 721 ==
LOC: MED 17:01 → MTU 19:48
PROVIDERS: ADMIT Hospitalist; ATTEND Hospitalist
PROC: 5A1D70Z Performance of Urinary Filtration, Intermittent, Less than 6 Hours Per Day (ICD-10-PCS; 2022-10-08)
PROC: XW033E5 Introduction of Remdesivir Anti-infective into Peripheral Vein, Percutaneous Approach, New Technology Group 5 (ICD-10-PCS; 2022-10-09)
PROC: 0JPV3XZ Removal of Tunneled Vascular Access Device from Upper Extremity Subcutaneous Tissue and Fascia, Percutaneous Approach (ICD-10-PCS; principal; 2022-10-10)
PROC: 05PY33Z Removal of Infusion Device from Upper Vein, Percutaneous Approach (ICD-10-PCS; 2022-10-10)
PROC: 5A1D70Z Performance of Urinary Filtration, Intermittent, Less than 6 Hours Per Day (ICD-10-PCS; 2022-10-10)
PROC: 5A1D70Z Performance of Urinary Filtration, Intermittent, Less than 6 Hours Per Day (ICD-10-PCS; 2022-10-13)
PROC: B54NZZA Ultrasonography of Left Upper Extremity Veins, Guidance (ICD-10-PCS; 2022-10-14)
PROC: B54MZZA Ultrasonography of Right Upper Extremity Veins, Guidance (ICD-10-PCS; 2022-10-14)
PROC: 02HV33Z Insertion of Infusion Device into Superior Vena Cava, Percutaneous Approach (ICD-10-PCS; 2022-10-14)
PROC: B518YZA Fluoroscopy of Superior Vena Cava using Other Contrast, Guidance (ICD-10-PCS; 2022-10-14)
PROC: 5A1D70Z Performance of Urinary Filtration, Intermittent, Less than 6 Hours Per Day (ICD-10-PCS; 2022-10-14)
PROC: 5A1D70Z Performance of Urinary Filtration, Intermittent, Less than 6 Hours Per Day (ICD-10-PCS; 2022-10-15)
PROC: 5A1D70Z Performance of Urinary Filtration, Intermittent, Less than 6 Hours Per Day (ICD-10-PCS; 2022-10-16)
PROC: 5A1D70Z Performance of Urinary Filtration, Intermittent, Less than 6 Hours Per Day (ICD-10-PCS; 2022-10-19)
PROC: 5A1D70Z Performance of Urinary Filtration, Intermittent, Less than 6 Hours Per Day (ICD-10-PCS; 2022-10-20)
DX: T80.211A Bloodstream infection due to central venous catheter, initial encounter (principal); A41.01 Sepsis due to Methicillin susceptible Staphylococcus aureus; J96.01 Acute respiratory failure with hypoxia; J12.82 Pneumonia due to coronavirus disease 2019; I33.0 Acute and subacute infective endocarditis; A04.72 Enterocolitis due to Clostridium difficile, not specified as recurrent; D84.9 Immunodeficiency, unspecified; I12.0 Hypertensive chronic kidney disease with stage 5 chronic kidney disease or end stage renal disease; U07.1 COVID-19; N18.6 End stage renal disease; I35.8 Other nonrheumatic aortic valve disorders; B95.61 Methicillin susceptible Staphylococcus aureus infection as the cause of diseases classified elsewhere; D63.8 Anemia in other chronic diseases classified elsewhere; D69.6 Thrombocytopenia, unspecified; Y84.8 Other medical procedures as the cause of abnormal reaction of the patient, or of later complication, without mention of misadventure at the time of the procedure; E78.5 Hyperlipidemia, unspecified; I87.1 Compression of vein; Z99.2 Dependence on renal dialysis; Z88.0 Allergy status to penicillin
CPT/HCPCS: 36415; 71045; 77003; 80053; 80202; 82306; 83605; 83735; 83880; 84100; 84484; 85025; 85049; 85384; 85610; 85730; 87040; 87070; 87081; 87186; 93005; 93313; 96361; 96365; 96366; 96367; 99291; J0360; J0610; J0692; J0696; J1100; J1644; J2001; J2060; J2250; J2310; J2405; J3010; J3370; J3490; J7060; Q0092